=== PATIENT | male | born 1975 | race African-American/Black ===

== ENCOUNTER 2020-06-03 09:18 | Emergency (ER) | payer SELFPAY ==
[~2020-06-03] VITALS: Ht 182.9 cm; Wt 130.6 kg
--- NOTE | 2020-06-03 09:28 | NUR ---
TG FROM HOME WITH C/O RIGHT ANKLE PAIN S/P FALL FROM STAIRS. PT STATES HE TWISTED HIS ANKLE. NO SWELLING NOTED. PT ABLE TO MOVE EXTREMITY BUT PER PT UNABLE TO PUT WEIGHT ON AFFECTED FOOT. NO DISCOLORATION. NO ANY OTHER INJURY RELATED TO FALL. AWAITING FOR MD CHAUHAN.
[2020-06-03] MEDS: IBUPROFEN 600 MG TABLET PO ONE ×2 (09:31→09:37)
[2020-06-03] MEDS ORDERED: IBUPROFEN 600 MG TABLET ONE (09:34)
--- NOTE | 2020-06-03 09:37 | NUR ---
XRAY DONE AT PT ROOM
[2020-06-03 10:31] VITALS: BP 151/98
== END 2020-06-03 10:31 | disposition home or self-care (01) ==
LOC: ER 09:23
DX: S93.491A Sprain of other ligament of right ankle, initial encounter (principal); W18.39XA Other fall on same level, initial encounter; Y93.01 Activity, walking, marching and hiking; Y92.89 Other specified places as the place of occurrence of the external cause; Y99.8 Other external cause status
CPT/HCPCS: 73610-TC